=== PATIENT | male | born 1995 | race Caucasian/White ===

== ENCOUNTER 2016-06-12 07:28 | Inpatient (IN) | payer MEDICAID ==
[2016-06-12 07:58] VITALS: BP 122/66
[2016-06-12] MEDS ORDERED: HYDROmorphone 1 mg/mL 1mL Syr IVP PRN (08:05)
[2016-06-12 12:46] LABS: URINE COLOR YELLOW
[2016-06-12 12:47] LABS: URINE BILIRUBIN NEGATIVE (NEGATIVE); URINE BLOOD NEGATIVE (NEGATIVE); URINE GLUCOSE (UA) NEGATIVE (NEGATIVE); URINE KETONE TRACE mg/dL (NEGATIVE); URINE PROTEIN NEGATIVE (NEGATIVE); URINE UROBILINOGEN 0.2 E.U./dL (0.2 - 1.0)
[2016-06-12 12:49] LABS: URINE BACTERIA NONE SEEN /hpf (NONE SEEN); URINE EPITHELIAL CELLS RARE /lpf (FEW); URINE FINE GRANULAR CAST 0-2 /lpf (NONE SEEN); URINE RBC 0-2 /hpf (0-5); URINE WBC NONE SEEN /hpf (0-5)
[2016-06-12 13:20] LABS: HEMATOCRIT 49.9 % (39.0-49.0); MEAN CELL VOLUME 93.6 fl (80-99); MEAN CORPUSCULAR HEMOGLOBIN 31.8 pg (26.0-30.0); MEAN PLATELET VOLUME 8.5 fl; PLATELET COUNT 253 Th/cmm (150-400); RED BLOOD COUNT 5.33 Mil/cmm (4.30-5.70); RED CELL DISTRIBUTION WIDTH 11.8 % (11.5-20.0); WHITE BLOOD COUNT 7.6 Th/cmm (4.8-10.8)
[2016-06-12 13:35] LABS: ALB/GLOB RATIO 1.5 (1.0-1.8); ALKALINE PHOSPHATASE 74 U/L (34-104); ANION GAP 9.4 (7.0-16.0); BILIRUBIN,TOTAL 0.7 mg/dL (0.3-1.0); BUN - UREA NITROGEN 17 mg/dL (7-25); CALCIUM SERUM 9.6 mg/dL (8.6-10.3); CARBON DIOXIDE 25.6 mEq/L (21.0-31.0); CHLORIDE 105 mEq/L (98-107); GLUCOSE 186 mg/dL (70-105); SGOT 21 U/L (13-39); SGPT/ALT 19 U/L (7-52); SODIUM SERUM 136 mEq/L (136-145)
[2016-06-12 13:44] LABS: BAND NEUTROPHILE 1 % (0-10); BASOPHIL 1 % (0-3); EOSINOPHIL 1 % (0-5); NEUTROPHILS 86 % (40-80); TOTAL CELLS COUNTED 100
[2016-06-12 13:45] LABS: PLATELET ESTIMATE ADEQUATE (NORMAL); PLATELET MORPHOLOGY NORMAL (NORMAL)
--- NOTE | 2016-06-12 17:58 | History & Physical ---
CHIEF COMPLAINT: Lower back pain. HISTORY OF PRESENT ILLNESS: This is the case of a 20-year-old male who was transferred from Emergency Room of [facility]. The patient went to ER secondary to back pain. The patient referred that yesterday he was playing basketball, when he fell down and he could not stand up. He went home and when he woke up, he had extreme pain on the lower back. The patient could not walk, reason why he went to Emergency Room in [facility]. The patient was transferred to this hospital to continue treatment. PAST MEDICAL HISTORY: Noncontributory. ALLERGIES: None. FAMILY HISTORY: Noncontributory. MEDICATIONS: Medications given at [facility] were diazepam, Dilaudid, ibuprofen, cyclobenzaprine, Toradol, methylprednisolone. REVIEW OF SYSTEMS: LUNGS: The patient denies shortness of breath. HEART: The patient denies chest pain. ABDOMEN: Unremarkable. MUSCULOSKELETAL: The patient has referred pain, low back pain on movement. EXTREMITIES: Unremarkable. PHYSICAL EXAMINATION: GENERAL: Does reveal a fairly nourished and developed male, awake, alert, in no acute distress. The patient refers back pain on movement. HEENT: Head is normocephalic and atraumatic. Nose: No evidence of nasal obstruction. Pupils reactive to light. Ears: No discharge. Mouth: Fairly kept. LUNGS: Bilateral air entry. No wheezing. No crackle. HEART: Regular and rhythmic. ABDOMEN: Soft, nontender. Bowel sound is present. MUSCULOSKELETAL: Extreme pain in the low back movement. There is pain on palpation in the low back. EXTREMITIES: Full movement of all extremities. DIAGNOSIS: Muscle spasms of the lower back. PLAN: 1. The patient will be admitted in the Medical Surgical Floor. 2. Saline lock. 3. Dilaudid as needed. 4. Ibuprofen 800 mg. 5. Lyrica. 6. Methylprednisolone. 7. Diet, regular. 8. Consult with Neurology. JOB# [id number]
--- NOTE | 2016-06-12 21:18 | Admit Criteria Form ---
Admit Criteria Forms - Admit Criteria Diagnosis: BACK PAIN Clinical Indications for Admission to Inpatient Care (Place 'X' for any and all applicable criteria): Admission is indicated for ANY ONE of the following (1)(2)(3)(4)(5)(6): [X]I. Inpatient admission required rather than observation care (Also use Back Pain: Observation Care as appropriate) because of ANY ONE of the following [X]a) Severe pain requiring acute inpatient management [ ]b) Immediate inpatient surgery [X]c) Other condition, treatment or monitoring requiring inpatient admission [ ]II. Spine fracture with significant damage or threat of damage to vertebral column or spinal cord [ ]III. Progressive or severe neurologic deficit [ ]IV. Suspected spinal infection (e.g., epidural abscess, vertebral osteomyelitis)(10) [ ]V. Suspected cause requires inpatient treatment (eg, aortic dissection) [ ]. Cauda equina syndrome as indicated by ANY ONE of the following (9): [ ]a) Bowel dysfunction [ ]b) Bladder dysfunction [ ]c) Saddle anesthesia [ ]d) Neurologic abnormality suggesting cauda equina impingement Extended stay beyond goal length of stay may be needed for (3)(25): [ ]a) Spinal cord compression from stenosis, disk, or tumor (8)(9) [ ]b) Traumatic or pathologic vertebral fracture (33) [ ]c) Vertebral infection(10) [ ]d) Severe pain that is difficult to control [ ]e) Older patients(65 years or older) The original [employer] content created by [employer] has been revised. The portions of the content which have been revised are identified through the use of italic text or in bold, and [facility] has neither reviewed nor approved the modified material. All other unmodified content is copyright [facility]. Please see references footnoted in the original [facility] edition 2016 Admit Criteria Met?: Yes
--- NOTE | 2016-06-13 11:20 | History & Physical ---
HISTORY OF PRESENT ILLNESS: The patient is a 20-year-old. He had been playing basketball, then severe pain. Sharp pain in the right low back, lumbar sacral area. The patient states that he had difficulty moving. It is unclear whether he had leg weakness. Because of pain, he said everytime he would turn, he will get severe pain. He could not get up, but he has been able to get up a little bit now. The patient says no marked numbness, no incontinence or retention. PAST MEDICAL HISTORY: Otherwise healthy. MEDICATIONS: He was given pain medication, steroids, muscle relaxants. MENTAL STATUS EXAM: Speech okay. Arms okay. Pain in the lower back. No bowel or bladder symptoms. No chest pain. PHYSICAL EXAMINATION: VITAL SIGNS: Temperature 98.2, blood pressure 120/74, pulse is 76. NECK: Supple, no bruits. HEART: Sounds S1, S2. LUNGS: Clear. ABDOMEN: Soft. NEUROLOGIC: The patient is awake, alert. He answers questions. Speech is normal. The patient's pupils react to light. No facial weakness. Upper extremity 5/5. Lower extremity ____ strength is quite good, proximally 4+ and distally about 5/5, but complains of pain. Reflexes are 2+ upper extremities. Knees are about 2+, ankle 2+. Sensation present. No ____ level. IMPRESSION: 1. The patient with back pain. 2. Rule out disk herniation. Pain seems to be in the lower spine. No higher up in the neck or not even in the midback. So at this time, the patient will be planned for MRI. We will do MRI of thoracic lumbar. Physical therapy. JOB# [id number]
--- NOTE | 2016-06-13 11:57 | General Progress Note ---
Subjective - Review of Systems Service Date: 06/13/16 Subjective: I fell better Objective - Results Result Diagrams: 06/12/16 13:12 06/12/16 13:12 Recent Labs: Laboratory Last Values WBC 7.6 Th/cmm (4.8-10.8) 06/12/16 13:12 RBC 5.33 Mil/cmm (4.30-5.70) 06/12/16 13:12 Hgb 17.0 gm/dL (13.2-17.3) 06/12/16 13:12 Hct 49.9 % (39.0-49.0) H 06/12/16 13:12 MCV 93.6 fl (80-99) 06/12/16 13:12 MCH 31.8 pg (26.0-30.0) H 06/12/16 13:12 MCHC Differential 34.0 pg (28.0-36.0) 06/12/16 13:12 RDW 11.8 % (11.5-20.0) 06/12/16 13:12 Plt Count 253 Th/cmm (150-400) 06/12/16 13:12 MPV 8.5 fl 06/12/16 13:12 Band Neutrophils % 1 % (0-10) 06/12/16 13:12 Neutrophils (Manual) 86 % (40-80) H 06/12/16 13:12 Lymphocytes 10 % (20-50) L 06/12/16 13:12 Monocytes 1 % (2-10) L 06/12/16 13:12 Eosinophils 1 % (0-5) 06/12/16 13:12 Basophils 1 % (0-3) 06/12/16 13:12 Platelet Estimate ADEQUATE (NORMAL) 06/12/16 13:12 Platelet Morphology NORMAL (NORMAL) 06/12/16 13:12 RBC Morph Micro Appear NORMAL (NORMAL) 06/12/16 13:12 Sodium 136 mEq/L (136-145) 06/12/16 13:12 Potassium 4.0 mEq/L (3.5-5.1) 06/12/16 13:12 Chloride 105 mEq/L (98-107) 06/12/16 13:12 Carbon Dioxide 25.6 mEq/L (21.0-31.0) 06/12/16 13:12 Anion Gap 9.4 (7.0-16.0) 06/12/16 13:12 BUN 17 mg/dL (7-25) 06/12/16 13:12 Creatinine 1.0 mg/dL (0.7-1.3) 06/12/16 13:12 Est GFR ( Amer) > 60.0 ml/min (>90) 06/12/16 13:12 Est GFR (Non-Af Amer) > 60.0 ml/min 06/12/16 13:12 BUN/Creatinine Ratio 17.0 06/12/16 13:12 Glucose 186 mg/dL (70-105) H 06/12/16 13:12 Hemoglobin A1c % 5.1 % (4.0-6.0) 06/12/16 13:12 Calcium 9.6 mg/dL (8.6-10.3) 06/12/16 13:12 Total Bilirubin 0.7 mg/dL (0.3-1.0) 06/12/16 13:12 AST 21 U/L (13-39) 06/12/16 13:12 ALT 19 U/L (7-52) 06/12/16 13:12 Alkaline Phosphatase 74 U/L (34-104) 06/12/16 13:12 Total Protein 7.5 gm/dL (6.0-8.3) 06/12/16 13:12 Albumin 4.5 gm/dL (4.2-5.5) 06/12/16 13:12 Globulin 3.0 gm/dL 06/12/16 13:12 Albumin/Globulin Ratio 1.5 (1.0-1.8) 06/12/16 13:12 Urine Source CLEAN C 06/12/16 10:12 Urine Color YELLOW 06/12/16 10:12 Urine Clarity SL. CLOUDY (CLEAR) 06/12/16 10:12 Urine pH 7.0 06/12/16 10:12 Ur Specific [place] 1.025 (1.005-1.030) 06/12/16 10:12 Urine Protein NEGATIVE mg/dL (NEGATIVE) 06/12/16 10:12 Urine Glucose (UA) NEGATIVE mg/dL (NEGATIVE) 06/12/16 10:12 Urine Ketones TRACE mg/dL (NEGATIVE) 06/12/16 10:12 Urine Blood NEGATIVE (NEGATIVE) 06/12/16 10:12 Urine Nitrate NEGATIVE (NEGATIVE) 06/12/16 10:12 Urine Bilirubin NEGATIVE (NEGATIVE) 06/12/16 10:12 Urine Urobilinogen 0.2 E.U./dL (0.2 - 1.0) 06/12/16 10:12 Ur Leukocyte Esterase NEGATIVE (NEGATIVE) 06/12/16 10:12 Urine RBC 0-2 /hpf (0-5) H 06/12/16 10:12 Urine WBC NONE SEEN /hpf (0-5) 06/12/16 10:12 Ur Epithelial Cells RARE /lpf (FEW) 06/12/16 10:12 Urine Bacteria NONE SEEN /hpf (NONE SEEN) 06/12/16 10:12 Fine Granular Casts 0-2 /lpf (NONE SEEN) H 06/12/16 10:12 - Physical Exam Vitals and I&O: Vital Signs Temp 98.8 F 06/13/16 08:00 Pulse 58 06/13/16 08:00 Resp 18 06/13/16 08:00 BP 107/44 06/13/16 08:00 Pulse Ox 97 06/13/16 08:00 Intake & Output 06/12/16 06/13/16 06/13/16 18:59 06:59 18:59 Intake Total 600 Output Total 800 Balance -200 Weight (lbs) 75.75 kg Intake: Oral 600 Output: Urine 800 Other: # Bowel Movements 0 Active Medications: Current Medications Hydromorphone HCl (Dilaudid) 1 mg IVP Q6H PRN PRN Reason: pain Stop: 08/11/16 08:04 Ibuprofen (Motrin) 800 mg PO Q8H [facility] Stop: 08/11/16 08:14 Last Admin: 06/13/16 09:41 Dose: Not Given Prednisone (Deltasone) 20 mg PO TID [facility] Stop: 08/11/16 13:59 Last Admin: 06/13/16 09:24 Dose: 20 mg Pregabalin (Lyrica) 50 mg PO BID [facility] Stop: 08/11/16 08:59 Last Admin: 06/13/16 09:24 Dose: 50 mg General: Alert, Oriented x3, Cooperative, No acute distress HEENT: Atraumatic Neck: Supple Cardiovascular: Regular rate Lungs: Clear to auscultation Abdomen: Bowel sounds Extremities: Other (No edema, full movement of all extremities) Neurological: Other (Low back pain) Skin: Other (Warm and dry) Psych/Mental Status: Mental status NL Assessment/Plan - Assessment Assessment: Patient is awake calm in no acute distres. Dx: muscle spasm. - Plan Plan: Tomorrow MRI will be done.
[2016-06-14 07:00] LABS: HEMATOCRIT 45.6 % (39.0-49.0); HEMOGLOBIN 15.6 gm/dL (13.2-17.3); MEAN CELL VOLUME 94.6 fl (80-99); MEAN CORPUSCULAR HEMOGLOBIN 32.4 pg (26.0-30.0); MEAN CORPUSCULAR HGB CONC 34.2 pg (28.0-36.0); MEAN PLATELET VOLUME 9.2 fl; PLATELET COUNT 222 Th/cmm (150-400); RED BLOOD COUNT 4.82 Mil/cmm (4.30-5.70); RED CELL DISTRIBUTION WIDTH 11.7 % (11.5-20.0)
[2016-06-14 07:18] LABS: WHITE BLOOD COUNT 13.3 Th/cmm (4.8-10.8)
[2016-06-14 07:22] LABS: ALB/GLOB RATIO 1.6 (1.0-1.8); ALKALINE PHOSPHATASE 64 U/L (34-104); ANION GAP 7.2 (7.0-16.0); BILIRUBIN,TOTAL 0.5 mg/dL (0.3-1.0); BUN - UREA NITROGEN 28 mg/dL (7-25); BUN/CREATININE RATIO 31.1; CALCIUM SERUM 9.1 mg/dL (8.6-10.3); CARBON DIOXIDE 27.7 mEq/L (21.0-31.0); CHLORIDE 107 mEq/L (98-107); CREATININE - SERUM 0.9 mg/dL (0.7-1.3); GLUCOSE 137 mg/dL (70-105); POTASSIUM SERUM 3.9 mEq/L (3.5-5.1); SGOT 11 U/L (13-39); SGPT/ALT 12 U/L (7-52); SODIUM SERUM 138 mEq/L (136-145)
--- NOTE | 2016-06-14 08:51 | General Progress Note ---
Subjective - Review of Systems Service Date: 06/14/16 Subjective: I fell better. Objective - Results Result Diagrams: 06/14/16 06:06 06/14/16 06:06 Recent Labs: Laboratory Last Values WBC 13.3 Th/cmm (4.8-10.8) H D 06/14/16 06:06 RBC 4.82 Mil/cmm (4.30-5.70) 06/14/16 06:06 Hgb 15.6 gm/dL (13.2-17.3) 06/14/16 06:06 Hct 45.6 % (39.0-49.0) 06/14/16 06:06 MCV 94.6 fl (80-99) 06/14/16 06:06 MCH 32.4 pg (26.0-30.0) H 06/14/16 06:06 MCHC Differential 34.2 pg (28.0-36.0) 06/14/16 06:06 RDW 11.7 % (11.5-20.0) 06/14/16 06:06 Plt Count 222 Th/cmm (150-400) 06/14/16 06:06 MPV 9.2 fl 06/14/16 06:06 Band Neutrophils % 1 % (0-10) 06/12/16 13:12 Neutrophils (Manual) 86 % (40-80) H 06/12/16 13:12 Lymphocytes 10 % (20-50) L 06/12/16 13:12 Monocytes 1 % (2-10) L 06/12/16 13:12 Eosinophils 1 % (0-5) 06/12/16 13:12 Basophils 1 % (0-3) 06/12/16 13:12 Platelet Estimate ADEQUATE (NORMAL) 06/12/16 13:12 Platelet Morphology NORMAL (NORMAL) 06/12/16 13:12 RBC Morph Micro Appear NORMAL (NORMAL) 06/12/16 13:12 Sodium 138 mEq/L (136-145) 06/14/16 06:06 Potassium 3.9 mEq/L (3.5-5.1) 06/14/16 06:06 Chloride 107 mEq/L (98-107) 06/14/16 06:06 Carbon Dioxide 27.7 mEq/L (21.0-31.0) 06/14/16 06:06 Anion Gap 7.2 (7.0-16.0) 06/14/16 06:06 BUN 28 mg/dL (7-25) H 06/14/16 06:06 Creatinine 0.9 mg/dL (0.7-1.3) 06/14/16 06:06 Est GFR ( Amer) > 60.0 ml/min (>90) 06/14/16 06:06 Est GFR (Non-Af Amer) > 60.0 ml/min 06/14/16 06:06 BUN/Creatinine Ratio 31.1 06/14/16 06:06 Glucose 137 mg/dL (70-105) H 06/14/16 06:06 Hemoglobin A1c % 5.1 % (4.0-6.0) 06/12/16 13:12 Calcium 9.1 mg/dL (8.6-10.3) 06/14/16 06:06 Total Bilirubin 0.5 mg/dL (0.3-1.0) 06/14/16 06:06 AST 11 U/L (13-39) L 06/14/16 06:06 ALT 12 U/L (7-52) 06/14/16 06:06 Alkaline Phosphatase 64 U/L (34-104) 06/14/16 06:06 Total Protein 6.7 gm/dL (6.0-8.3) 06/14/16 06:06 Albumin 4.1 gm/dL (4.2-5.5) L 06/14/16 06:06 Globulin 2.6 gm/dL 06/14/16 06:06 Albumin/Globulin Ratio 1.6 (1.0-1.8) 06/14/16 06:06 Urine Source CLEAN C 06/12/16 10:12 Urine Color YELLOW 06/12/16 10:12 Urine Clarity SL. CLOUDY (CLEAR) 06/12/16 10:12 Urine pH 7.0 06/12/16 10:12 Ur Specific [place] 1.025 (1.005-1.030) 06/12/16 10:12 Urine Protein NEGATIVE mg/dL (NEGATIVE) 06/12/16 10:12 Urine Glucose (UA) NEGATIVE mg/dL (NEGATIVE) 06/12/16 10:12 Urine Ketones TRACE mg/dL (NEGATIVE) 06/12/16 10:12 Urine Blood NEGATIVE (NEGATIVE) 06/12/16 10:12 Urine Nitrate NEGATIVE (NEGATIVE) 06/12/16 10:12 Urine Bilirubin NEGATIVE (NEGATIVE) 06/12/16 10:12 Urine Urobilinogen 0.2 E.U./dL (0.2 - 1.0) 06/12/16 10:12 Ur Leukocyte Esterase NEGATIVE (NEGATIVE) 06/12/16 10:12 Urine RBC 0-2 /hpf (0-5) H 06/12/16 10:12 Urine WBC NONE SEEN /hpf (0-5) 06/12/16 10:12 Ur Epithelial Cells RARE /lpf (FEW) 06/12/16 10:12 Urine Bacteria NONE SEEN /hpf (NONE SEEN) 06/12/16 10:12 Fine Granular Casts 0-2 /lpf (NONE SEEN) H 06/12/16 10:12 - Physical Exam Vitals and I&O: Vital Signs Temp 98.8 F 06/14/16 08:00 Pulse 59 06/14/16 08:00 Resp 20 06/14/16 08:00 BP 104/60 06/14/16 08:00 Pulse Ox 97 06/14/16 08:00 Intake & Output 06/13/16 06/14/16 06/14/16 18:59 06:59 18:59 Intake Total 700 Output Total 1500 Balance -800 Intake: Oral 700 Output: Urine 1500 Active Medications: Current Medications Hydromorphone HCl (Dilaudid) 1 mg IVP Q6H PRN PRN Reason: pain Stop: 08/11/16 08:04 Ibuprofen (Motrin) 800 mg PO Q8H [facility] Stop: 08/11/16 08:14 Last Admin: 06/14/16 00:08 Dose: 800 mg Prednisone (Deltasone) 20 mg PO TID [facility] Stop: 08/11/16 13:59 Last Admin: 06/13/16 21:54 Dose: 20 mg Pregabalin (Lyrica) 50 mg PO BID [facility] Stop: 08/11/16 08:59 Last Admin: 06/13/16 17:23 Dose: 50 mg General: Alert, Oriented x3, Cooperative, No acute distress HEENT: Atraumatic Neck: Supple Cardiovascular: Regular rate Lungs: Clear to auscultation Abdomen: Bowel sounds, Soft Extremities: Other (No edema) Neurological: Other (Patient has not try to walk or sitting down) Skin: Other (Warm and dry) Psych/Mental Status: Mental status NL Assessment/Plan - Assessment Assessment: Patient is awake calm in no acute distress. Pain improving, now he is able to rotated. Today WBC is a little high possible to corticoid treatment, there is no sing of infection. Dx: muscle spasm. - Plan Plan: MRI will be done today. will continue to monitor.
[2016-06-14 09:58] LABS: BAND NEUTROPHILE 2 % (0-10); NEUTROPHILS 84 % (40-80); PLATELET ESTIMATE ADEQUATE (NORMAL); PLATELET MORPHOLOGY NORMAL (NORMAL); TOTAL CELLS COUNTED 100
--- NOTE | 2016-06-14 10:03 | Diagnostic Imaging Report ---
Lumbar spine (3 views) HISTORY: Pain Alignment is normal. Disc spaces are maintained. No focal lesions. IMPRESSION: No acute abnormalities
--- NOTE | 2016-06-14 14:29 | Diagnostic Imaging Report ---
MRI lumbar spine HISTORY: Pain Multiple MRI sequences were obtained in the sagittal and axial planes. The exam of the L5-S1 level demonstrates a normal disc contour with no significant extradural abnormalities. The neural foramina appear patent bilaterally. The L4-5 level appears normal. The exam of the L3-4 level and straight a mild (less than 2 mm) central disc protrusion with mild extradural encroachment on the anterior aspect of the thecal sac. The neural foramina appear patent bilaterally. The L1-2 and L2-3 levels appear normal. No abnormalities are seen in the region of the distal spinal cord or conus. Bone marrow exhibits normal signal intensity with no focal lesions. IMPRESSION: 1. Mild (less than 2 mm) central disc protrusion L3-4 2. No other significant abnormalities
--- NOTE | 2016-06-14 14:32 | Diagnostic Imaging Report ---
MRI thoracic spine HISTORY: Pain Multiple MR sequences were obtained in the sagittal and axial planes. There are normal disc contours seen at all thoracic levels. No intradural abnormalities. The thoracic spinal cord exhibits a normal contour and caliber. No intramedullary abnormalities are seen. Bone marrow exhibits normal signal intensity with no focal abnormalities. IMPRESSION: Normal examination
--- NOTE | 2016-06-21 23:42 | Discharge Summary ---
CHIEF COMPLAINT: Lower back pain. HISTORY OF PRESENT ILLNESS: This is the case of a 20-year-old male who was transferred from [facility] to continue treatment due to lower back pain. The patient referred that he was playing basketball and when he jumped, he fell down and immediately felt intense lower back pain, that he could not move. He stayed on the floor for a few minutes. Due to this, the patient was transferred to [facility] and he was transferred to [facility] to continue treatment. HOSPITAL COURSE AND TREATMENT: Then, this patient was admitted in the Medical Surgical Floor. He was started with saline lock, Dilaudid for pain control, ibuprofen, Lyrica, and methylprednisone. Diet was regular diet. Consult with Neurology was done and recommendations were followed. MRI of the back was done and was found no medulla, no spine lesions. After 3 days in the hospital, it was considered that the patient received the maximum benefit of hospitalization and he could be sent back to home to continue treatment with PCP. At the moment of the discharge, the patient was awake, alert and oriented, in no acute distress. JEWELRY CONSULTANT IN THIS CASE: Dr. Ramsey, Neurology. DISPOSITION: The patient is sent back home. IMPRESSION: Muscle spasm of the lower back. JOB# [id number]
== END 2016-06-14 17:15 | disposition home or self-care (01) | DRG 347 ==
LOC: MSI 07:28
PROVIDERS: ADMIT General Practice; ATTEND General Practice
DX: M62.830 Muscle spasm of back (principal); W18.30XA Fall on same level, unspecified, initial encounter; Y92.89 Other specified places as the place of occurrence of the external cause; Y99.8 Other external cause status; Y93.79 Activity, other specified sports and athletics
CPT/HCPCS: 36415-UA; 72100-TC; 80053-TC; 81001-TC; 83036-90; 85007-TC; 85027-TC; 97530; J1170; Z7610; Z7610-TC